=== PATIENT | female | born 1990 | race Caucasian/White ===

== ENCOUNTER 2020-06-07 16:32 | Emergency (ER) | payer MEDICAID, OTHER ==
[~2020-06-07] VITALS: Ht 160 cm; Wt 90.7 kg
[2020-06-07 16:43] VITALS: BP 122/95
== END 2020-06-07 21:22 | disposition home or self-care (01) ==
LOC: ER 16:32 → EDBD 16:32 → ER 21:22
DX: S13.9XXA Sprain of joints and ligaments of unspecified parts of neck, initial encounter (principal); M62.830 Muscle spasm of back; R58 Hemorrhage, not elsewhere classified; V49.9XXA Car occupant (driver) (passenger) injured in unspecified traffic accident, initial encounter; Y93.89 Activity, other specified; Y92.89 Other specified places as the place of occurrence of the external cause; Y99.8 Other external cause status
CPT/HCPCS: 70450; 71045; 72125

== ENCOUNTER 2022-03-08 03:00 | Emergency (ER) | payer MEDICAID ==
[~2022-03-08] VITALS: Ht 160 cm; Wt 94.7 kg
[2022-03-08 03:35] VITALS: BP 142/90
[2022-03-08] MEDS ORDERED: OXYCODONE W/ ACETAMINOPHEN 5/325MG TABLET PO ONE (04:30)
[2022-03-08] MEDS ORDERED: ONDANSETRON ODT 4 MG TAB PO ONE (04:30)
== END 2022-03-08 07:41 | disposition left against medical advice (07) ==
LOC: ER 03:00
DX: M25.511 Pain in right shoulder (principal); Z53.21 Procedure and treatment not carried out due to patient leaving prior to being seen by health care provider; W06.XXXA Fall from bed, initial encounter; Y93.89 Activity, other specified; Y92.89 Other specified places as the place of occurrence of the external cause; Y99.8 Other external cause status
CPT/HCPCS: 73030; Q0162